=== PATIENT | female | born 1980 | race Caucasian/White ===

== ENCOUNTER 2017-12-18 19:11 | Outpatient (REF) | payer SELFPAY | END 2017-12-18 19:31 | LOC: LBN 19:11 | PROVIDERS: PCP Nurse Practitioner Family; Visit Provider Student in an Organized Health Care Education/Training Program | DX: R35.0 Frequency of micturition (principal) | CPT/HCPCS: 87077; 87086; 87186 ==

== ENCOUNTER 2018-06-24 01:16 | Outpatient (CLI) | payer MEDICAID, SELFPAY ==
--- NOTE | 2018-06-24 07:49 | DI.US_ITS ---
SYMPTOM/DIAGNOSIS: H/O FIBROIDS, MENORRHAGIA, NEW PAIN AT JANET ABD, NAUSEA PELVIC ULTRASOUND: A transabdominal and transvaginal examination was performed. The uterus measures 13.9 cm. in length, 9.5 cm. in height and 10.8 cm. in width with an endometrial stripe thickness of 3.5 mm. There is an intrauterine IUD noted in the endometrial cavity. There is a 12.7 by 8.9 by 10.8 cm. fundal fibroid. The ovaries are not visualized. There is no evidence of cul-de-sac fluid. IMPRESSION: An IUD appears to lie in the endometrial cavity. A fundal fibroid measures up to 12.7 by 8.9 by 10.8 cm. ABDOMEN ULTRASOUND: The aorta and vena cava are normal. The liver is top limits of normal in size. The patient is status post cholecystectomy. There is no evidence of biliary dilatation. The pancreas, spleen and kidneys are unremarkable. There is no evidence of abdominal free fluid. SUMMARY: Unremarkable abdominal ultrasound in a patient who is status post cholecystectomy.
== END 2018-06-24 01:36 ==
PROVIDERS: PCP Internal Medicine; Visit Provider Nurse Practitioner Adult Health
DX: D25.9 Leiomyoma of uterus, unspecified (principal); N92.0 Excessive and frequent menstruation with regular cycle; R10.815 Periumbilic abdominal tenderness; R11.0 Nausea; Z97.5 Presence of (intrauterine) contraceptive device; Z90.49 Acquired absence of other specified parts of digestive tract
CPT/HCPCS: 76700; 76830; 76856

== ENCOUNTER 2018-07-03 15:33 | Outpatient (REF) | payer MEDICAID, SELFPAY ==
[2018-07-03 15:48] LABS: Abs Immature Grans 0.03 k/cumm (0.0-0.09); Absolute Basophil Count 0.03 k/cumm (0.0-0.2); Absolute Eosinophil Count 0.08 k/cumm (0.0-0.7); Absolute Lymphocyte Count 3.63 k/cumm (1.2-3.4); Basophils % 0.2; Eosinophils % 0.6; HCT 41.6 % (36.0-46.0); HGB 13.8 g/dL (12.0-15.5); Immature Grans % 0.2; Lymphocytes % 28.6; Mean Corp. HGB Concentration 33.2 g/dL (32.0-36.0); Mean Corpuscular Hemoglobin 29.1 pg (27.0-33.0); Mean Corpuscular Volume 87.6 fL (80-95); Mean Platelet Volume 9.6 fL (8.0-11.0); Monocytes % 6.5; Neutrophils % 63.9; Platelet Count 388 x1000/uL (130-400); RBC 4.75 m/cumm (4.00-5.20); RBC Distribution Width 12.6 % (11.7-14.6); White Blood Cell Count 12.68 k/cumm (4.4-10.8)
[2018-07-03 15:49] LABS: Absolute Monocyte Count 0.82 k/cumm (0.11-0.7)
[2018-07-03 16:19] LABS: ALT 25 U/L (12-78); AST 14 U/L (15-37); Albumin 4.1 g/dL (3.4-5.0); Alkaline Phosphatase 107 U/L (46-116); Anion Gap 9.8 mmol/L (3-11); BUN 17 mg/dL (7-18); Bilirubin, Total 0.3 mg/dL (0.2-1.0); CO2 25.2 mmol/L (21.0-32.0); CREATININE 0.98 mg/dL (0.55-1.02); Calcium 9.6 mg/dL (8.5-10.1); Chloride 101 mmol/L (98-107); Glucose 85 mg/dL (70-100); Potassium 4.2 mmol/L (3.5-5.1); Sodium 136 mmol/L (136-145); Total Protein 8.2 g/dL (6.4-8.2)
[2018-07-03 16:39] LABS: ESR 43 MM/HR (0-20)
== END 2018-07-03 15:53 ==
LOC: LBN 15:33
PROVIDERS: PCP Internal Medicine; Visit Provider Nurse Practitioner Adult Health
DX: R50.9 Fever, unspecified (principal); R06.02 Shortness of breath; R14.0 Abdominal distension (gaseous); D21.9 Benign neoplasm of connective and other soft tissue, unspecified
CPT/HCPCS: 80053; 85652; 85025; 85379

== ENCOUNTER 2018-07-06 00:56 | Outpatient (CLI) | payer MEDICAID, SELFPAY ==
--- NOTE | 2018-07-06 09:51 | DI.MRI_ITS ---
SYMPTOM/DIAGNOSIS: UTERINE FIBROIDS, D25.9, LEIOMYOMA OF UTERUS PELVIS MRI: Comparison is made with pelvic ultrasound dated 06/24/18. T 1 and T 2 axial, coronal and sagittal sequences were performed. The exam is limited by patient motion. The cervix appears normal. The uterus is mostly replaced by a dominant fibroid measuring 9 cm. in diameter. Other smaller peripheral exophytic fibroids are seen. There is very little residual uterine parenchyma. An IUD is not visible on this exam. The visualized portions of the bones are unremarkable. IMPRESSION: 9 cm. dominant fibroid as well as multiple other smaller peripheral fibroids with very little residual uterine parenchyma.
[2018-07-06 12:28] LABS: D-Dimer 503 ng/mlFEU (<500)
== END 2018-07-06 01:16 ==
PROVIDERS: Nurse Practitioner Adult Health; PCP Internal Medicine; Visit Provider Obstetrics & Gynecology
DX: D25.9 Leiomyoma of uterus, unspecified (principal); D21.9 Benign neoplasm of connective and other soft tissue, unspecified; R06.02 Shortness of breath
CPT/HCPCS: 36415; 72195; 85379

== ENCOUNTER 2018-07-07 09:06 | Outpatient (CLI) | payer MEDICAID, SELFPAY ==
[2018-07-07] MEDS: Omnipaque 350 MG/ML 100 ML BTL IJ (09:21)
--- NOTE | 2018-07-07 09:21 | DI.CT_ITS ---
SYMPTOM/DIAGNOSIS: SOB, ELEVATED D DIMER, R06.02, R 79.89, ? PE PE CHEST CT: CT angiography was performed with multi slice acquisition and multi planar and 3D reconstruction. CT angiography of the chest was performed with intravenous infusion of cc's of Omnipaque 350. Images obtained through the upper abdomen are unremarkable. There is no evidence of pulmonary embolic disease. There is no evidence of thoracic aortic dissection or aneurysm. No mediastinal or hilar adenopathy seen. Tracheobronchial tree appears intact. No pleural effusion or pulmonary consolidation. CONCLUSION: Normal CTA chest.
== END 2018-07-07 09:26 ==
PROVIDERS: PCP Internal Medicine; Visit Provider Nurse Practitioner Adult Health
DX: R06.02 Shortness of breath (principal); R79.1 Abnormal coagulation profile
CPT/HCPCS: 71275; J3490

== ENCOUNTER 2018-07-08 12:33 | Outpatient (REF) | payer MEDICAID, SELFPAY ==
--- NOTE | 2018-07-08 11:20 | PAPFT_PTH ---
PATIENT: Savi De Jesus LOC: [facility] U#:[id number] AGE/SX: 38/F ROOM: RE07/08/[address]: Dusty Mart MD : 1980 BED: DIS: 07/08/2018 SPEC #: [id number] RECD: 07/08/18 12:54 STATUS: OLITomas RESherman #: [id number] CATERINA: 07/08/18 11:[address]: Dusty Mart DEPT: [facility] Cytology RECD BY: Emma Jurado ENTERED: 07/08/18 12:54 SP TYPE: PAPFT OTHR DR: Erika Howard MD Tissues: 1 - CX/ENDOCX FOR PAP SMEARS Procedures: PAP THIN PREP/UVM Screening HPV DNA PROBE Comments: [id number]
== END 2018-07-08 12:53 ==
LOC: LBN 12:33
PROVIDERS: PCP Internal Medicine; Visit Provider Obstetrics & Gynecology
DX: Z12.4 Encounter for screening for malignant neoplasm of cervix (principal); Z11.51 Encounter for screening for human papillomavirus (HPV)
CPT/HCPCS: 88142; 87624

== ENCOUNTER 2018-07-20 14:45 | Outpatient (CLI) | payer MEDICAID, SELFPAY ==
[2018-07-20 15:05] LABS: HCT 39.9 % (36.0-46.0); HGB 13.2 g/dL (12.0-15.5); Mean Corp. HGB Concentration 33.1 g/dL (32.0-36.0); Mean Corpuscular Hemoglobin 28.9 pg (27.0-33.0); Mean Corpuscular Volume 87.3 fL (80-95); Mean Platelet Volume 9.7 fL (8.0-11.0); Platelet Count 335 x1000/uL (130-400); RBC 4.57 m/cumm (4.00-5.20); RBC Distribution Width 12.6 % (11.7-14.6); White Blood Cell Count 10.09 k/cumm (4.4-10.8)
[2018-07-20 15:43] LABS: ESR 46 MM/HR (0-20)
[2018-07-22 11:35] LABS: IgA 301 mg/dL (85-499); Interpretation SEE COMMENTS; Tissue Transglutaminase IgA <1.2 U/mL (<4.0)
== END 2018-07-20 15:05 ==
PROVIDERS: PCP Internal Medicine; Visit Provider Nurse Practitioner Adult Health
DX: R14.0 Abdominal distension (gaseous) (principal); D72.829 Elevated white blood cell count, unspecified; Z83.79 Family history of other diseases of the digestive system; R70.0 Elevated erythrocyte sedimentation rate
CPT/HCPCS: 36415; 82784; 83516; 85027; 85652

== ENCOUNTER 2018-10-05 12:20 | Outpatient (CLI) | payer MEDICAID, SELFPAY ==
[2018-10-05 13:54] LABS: Anion Gap 11.5 mmol/L (3-11); BUN 13 mg/dL (7-18); CO2 21.5 mmol/L (21.0-32.0); CREATININE 0.89 mg/dL (0.55-1.02); Calcium 9.1 mg/dL (8.5-10.1); Chloride 105 mmol/L (98-107); Glucose 85 mg/dL (70-100); Magnesium 2.1 mg/dL (1.8-2.4); PHOSPHORUS 3.6 mg/dL (2.6-4.7); Potassium 4.3 mmol/L (3.5-5.1); Sodium 138 mmol/L (136-145)
[2018-10-05 15:09] LABS: ESR 53 MM/HR (0-20)
[2018-10-05 16:15] LABS: Vitamin D 25 Total 21.1 ng/ml (30-100)
[2018-10-05 16:16] LABS: Vitamin B12 573 pg/mL (193-986)
[2018-10-06 10:13] LABS: Parathyroid Hormone,Intact 34 pg/ml (19-88)
== END 2018-10-05 12:40 ==
PROVIDERS: PCP Nurse Practitioner Adult Health; Visit Provider Nurse Practitioner Adult Health
DX: F32.9 Major depressive disorder, single episode, unspecified (principal); R20.0 Anesthesia of skin; R20.2 Paresthesia of skin; R41.89 Other symptoms and signs involving cognitive functions and awareness; R42 Dizziness and giddiness; R53.81 Other malaise; R53.83 Other fatigue; R70.0 Elevated erythrocyte sedimentation rate; Z51.81 Encounter for therapeutic drug level monitoring
CPT/HCPCS: 36415; 80048; 82306; 85652; 82607; 83735; 83970; 84100

== ENCOUNTER 2019-03-21 19:48 | Emergency (ER) | payer MEDICAID, SELFPAY ==
[2019-03-21] VITALS (22 sets, daily range): BP systolic 112–150; BP diastolic 70–92; PULSE 71–93; RESP 11–26; TEMP 36.7; O2SAT 94–100
--- NOTE | 2019-03-21 20:04 | W.ED.GENAD ---
Discharge Plan Disposition Patient Disposition: HOME Discharge Details Chief Complaint: Palpitatns Clinical Impression: Chest pain, Heart palpitations Primary Care Provider: Kindra Romeo ED Provider: Isiah Mcdaniels Home Meds and New Rx's Prescriptions: No Action magnesium 200 mg tablet 500 mg PO DAILY PRNRF: 0 riboflavin (vitamin B2) 100 mg tablet See Rx Instructions PO DAILY RF: 0 acetaminophen [Tylenol Extra Strength] 500 mg tablet 500 mg PO ONCE PRNRF: 0 ferrous sulfate [Feosol] 325 mg (65 mg iron) tablet 325 mg PO BID RF: 0 cetirizine [Zyrtec] 10 mg tablet 10 mg PO DAILY PRNRF: 0 cholecalciferol (vitamin D3) 5,000 unit capsule 10,000 unit PO DAILY RF: 0 Discharge Instructions Instructions: Chest Pain (ED), Palpitations (ED) Additional Instructions: At this time there is no evidence of life-threatening process on your CAT scan, or with your work-up or EKG. We will set up a property assessment monitor for you, they will call you for this. If you notice any worsening of your symptoms, or any new symptoms such as vomiting, diarrhea, fever, chills, shortness of breath, chest pain, numbness, weakness, or fainting , please return immediately to the emergency department for reevaluation. Please follow up with your primary care provider as soon as possible for reassessment and reevaluation. As always, it was a pleasure participating in your medical care today. Referrals: Kindra Romeo, SPEECH LANGUAGE PATHOLOGY ASSISTANT [Primary Care Provider] - Medical Decision Making This is a 39-year-old female with a past medical history of previous uterine myomas and fibroids which was surgically removed this past December on the , chronic headaches, high cholesterol, mild obesity, who presents today for evaluation of chest pain, difficulty swallowing, back pain, palpitations. Symptoms have been present for the last 5 years, however for the last 1 year chest pain is been slightly worse, then she has had intermittent palpitations for the last 3 months. The difficulty swallowing is very mild, she states that she feels like there is something pressing from her back onto her throat, but this is intermittent and not constant. She had a fibroid surgery on January 07 she states that her symptoms notably improved however they seem to be returning now. She did take estrogen for control but stopped taking this a month ago. Denies PE risk factors such as recent long car rides, immobilization, recent surgery, prior history of DVT or PE, family history of PE or DVT, morbid obesity, current exogenous estrogen and smoking, hemoptysis, history of cancer. She denies any cough, hemoptysis. Shortness of breath does not seem to be necessarily worsened by activity. She does admit to mild chest pressure in conjunction with her symptoms. She denies fever, chills, numbness tingling or weakness. She denies history of cancer. Of note she did have a CT angiogram 9 months ago, this was negative for any acute process. Also of note the patient states that she is worried she may have an issue with her thymus in particular. However she denies any previous issue with her thymus in the past. Also of note the patient states that often times her right foot will start to mildly ache before her symptoms began. Physical exam shows no abnormalities whatsoever, EKG is unremarkable aside for mild Q3T3. Differential is broad, PE is on the differential but less likely. We will get a d-dimer, we will gently rehydrate, evaluate for cardiac abnormality. We will schedule her for an outpatient Holter monitor secondary to her palpitation symptoms. 10:30 At this time the laboratory work up has returned negative for any acute process, electrolytes are all within normal limits, renal function normal, liver function normal, troponin normal, proBNP within normal limits. Thyroid level normal, lipase normal. During the patient's time here she has shown no dysrhythmia or abnormality on telemetry. CTA of the chest shows no evidence of dissection, aneurysm, mass, tumor or abnormality per virtual radiology. I am uncertain as to the exact reason for the patient's symptomatology, there may be a component of muscle spasms, or other [id number] abnormality. We will schedule a Holter monitor for the patient for further outpatient cardiac dysrhythmia evaluation. Did recommend continued close follow-up with her primary care provider. If you notice any worsening of your symptoms, or any new symptoms such as vomiting, diarrhea, fever, chills, shortness of breath, chest pain, numbness, weakness, or fainting , please return immediately to the emergency department for reevaluation. Please follow up with your primary care provider as soon as possible for reassessment and reevaluation. As always, it was a pleasure participating in your medical care today. EKG 19: 55 Rate 100, ME 150, QTc 472, QRS 90, sinus rhythm, no significant ST elevation or depression, there is an inverted T wave in lead III, V1, questionable Q wave in lead III. No evidence of STEMI. No other abnormalities. Of note these findings are consistent with prior EKG from 2016 FINDINGS: Pulmonary arteries: No acute pulmonary embolus. Aorta: No aneurysm or dissection of the thoracic aorta. Lungs: Unremarkable. No consolidation. No masses. Pleural space: Unremarkable. No pneumothorax. No pleural effusion. Heart: Unremarkable. No cardiomegaly. No pericardial effusion. Gallbladder and bile ducts: Cholecystectomy. Lymph nodes: Unremarkable. No enlarged lymph nodes. Bones/joints: Unremarkable. No acute fracture. Soft tissues: Unremarkable. IMPRESSION: 1. No aneurysm or dissection of the thoracic aorta. 2. No acute pulmonary embolus. Thank you for allowing us to participate in the care of your patient. Dictated and Authenticated by: Villa Vazquez MD 03/21/2019 10:28 PM Eastern Time ([place] & [place]) Candidate vein examined with linear array probe - confirmed collapsibility, lack of pulsatility, and proper anatomic location. Using aseptic technique, IV catheter inserted with flash of blood noted, flow of venous blood confirmed. Flushes easily and without pain. No hematoma or complications noted. IV secured. Patient tolerated well. HPI General Date/Time Provider Initiated Documentation: 03/21/19 19:48. HPI Narrative: This is a 39-year-old female with a past medical history of previous uterine myomas and fibroids which was surgically removed this past December on the , chronic headaches, high cholesterol, mild obesity, who presents today for evaluation of chest pain, difficulty swallowing, back pain, palpitations. Symptoms have been present for the last 5 years, however for the last 1 year chest pain is been slightly worse, then she has had intermittent palpitations for the last 3 months. The difficulty swallowing is very mild, she states that she feels like there is something pressing from her back onto her throat, but this is intermittent and not constant. She had a fibroid surgery on January 07 she states that her symptoms notably improved however they seem to be returning now. She did take estrogen for control but stopped taking this a month ago. Denies PE risk factors such as recent long car rides, immobilization, recent surgery, prior history of DVT or PE, family history of PE or DVT, morbid obesity, current exogenous estrogen and smoking, hemoptysis, history of cancer. She denies any cough, hemoptysis. Shortness of breath does not seem to be necessarily worsened by activity. She does admit to mild chest pressure in conjunction with her symptoms. She denies fever, chills, numbness tingling or weakness. She denies history of cancer. Of note she did have a CT angiogram 9 months ago, this was negative for any acute process. Also of note the patient states that she is worried she may have an issue with her thymus in particular. However she denies any previous issue with her thymus in the past. Also of note the patient states that often times her right foot will start to mildly ache before her symptoms began. Related Data Home Medications Medication Instructions Recorded Confirmed cetirizine 10 mg tablet 10 mg PO DAILY PRN 09/21/18 03/21/19 cholecalciferol (vitamin D3) 5,000 10,000 unit PO DAILY cap 11/12/18 03/21/19 unit capsule riboflavin (vitamin B2) 100 mg See Rx Instructions PO DAILY 11/27/18 03/21/19 tablet ferrous sulfate 325 mg (65 mg 325 mg PO BID tab 02/05/19 03/21/19 iron) tablet acetaminophen 500 mg tablet 500 mg PO ONCE PRN tab 02/15/19 03/21/19 magnesium 200 mg tablet 500 mg PO DAILY PRN tab 02/15/19 03/21/19 Allergies Allergy/AdvReac Type Severity Reaction Status Date / Time basil Allergy Severe Verified 03/21/19 20:13 nickie hips Allergy Severe Tongue Verified 03/21/19 20:13 Swells gay Allergy Severe Verified 03/21/19 20:13 medroxyprogesterone acetate AdvReac Intermediate headache,shaky,blurred Verified 03/21/19 20:13 [From Provera] vision in r eye. eusebio AdvReac Mild vomitting Verified 03/21/19 20:13 sesame seed oil Allergy Intermediate tongue Uncoded 03/21/19 20:13 swelling Majoram Allergy Unknown Uncoded 03/21/19 20:13 Tyme Allergy Unknown Uncoded 03/21/19 20:13 General Stated Complaint: Palpitatns COTY: 2 Review of Systems All systems reviewed & are unremarkable except as noted in HPI and below PFSH Social History Smoking/Tobacco Use Status: Never Alcohol Intake: current Alcohol Intake frequency: holidays/special occasions only Drug use: Never Number of Children: 0 Communication Needs: Corrective Lenses Education Level: college Details: BA current occupation: Education What type of physical activity do you participate in: walking Frequency: daily Exam Narrative Exam Narrative: 1.Const: Well-nourished, Well-developed, appearing stated age 2.Eyes: PERRL, no conjunctival injection, and symmetrical lids. 3.ENT: Atraumatic external nose and ears. Moist MM. Neck: Symmetric, trachea midline, No thyromegaly. 4.CVS: +S1/S2, No murmurs or gallops. Peripheral pulses 2+ and equal in all extremities. Brisk capillary refill in all extremities. 5.RESP: Unlabored respiratory effort. Clear to auscultation bilaterally. No wheezes rales or rhonchi 6.GI: Soft, Nontender/Nondistended, No hepatosplenomegaly. No guarding or rebound. 7.MSK: Normocephalic/Atraumatic, Extremities w/o deformity or ttp No cyanosis or clubbing, Normal movement of all extremities. 8.Skin: Warm, Dry. No rashes or lesions. 9.Neuro: storeroom attendant II-XII grossly intact. Sensation grossly intact, no focal neurologic deficits. 10.Psych: (AAO) x3. Appropriate mood and affect Course Vital Signs Vital signs: Vital Signs Temperature 36.7 C 03/21/19 19:54 Pulse 90 03/21/19 19:54 Respiratory Rate 24 03/21/19 19:54 Blood Pressure 150/90 H 03/21/19 19:54 Pulse Oximetry 99 03/21/19 19:54 Temperature 36.7 C 03/21/19 19:54 Temperature Source Temporal Artery Scan 03/21/19 19:54 Pulse 90 03/21/19 19:54 Respiratory Rate 24 03/21/19 19:54 Respiratory Effort 03/21/19 19:57 Blood Pressure 150/90 H 03/21/19 19:54 Blood Pressure Position Supine 03/21/19 19:54 Pulse Oximetry 99 03/21/19 19:54 Oxygen Delivery Method Room Air 03/21/19 19:54 Oxygen Flow Rate 0 03/21/19 19:54
[2019-03-21 20:35] LABS: Abs Immature Grans 0.01 k/cumm (0.0-0.09); Absolute Basophil Count 0.05 k/cumm (0.0-0.2); Absolute Eosinophil Count 0.13 k/cumm (0.0-0.7); Absolute Lymphocyte Count 3.86 k/cumm (1.2-3.4); Absolute Monocyte Count 0.65 k/cumm (0.11-0.7); Absolute Neutrophil Count 5.83 k/cumm (1.2-6.7); Basophils % 0.5; Eosinophils % 1.2; HCT 38.2 % (36.0-46.0); HGB 12.5 g/dL (12.0-15.5); Immature Grans % 0.1; Lymphocytes % 36.7; Mean Corp. HGB Concentration 32.7 g/dL (32.0-36.0); Mean Corpuscular Hemoglobin 28.3 pg (27.0-33.0); Mean Corpuscular Volume 86.4 fL (80-95); Monocytes % 6.2; Neutrophils % 55.3; Platelet Count 404 x1000/uL (130-400); RBC 4.42 m/cumm (4.00-5.20); RBC Distribution Width 12.8 % (11.7-14.6); White Blood Cell Count 10.53 k/cumm (4.4-10.8)
[2019-03-21 20:57] LABS: ALT 25 U/L (14-59); AST 18 U/L (15-37); Albumin 3.6 g/dL (3.4-5.0); Alkaline Phosphatase 92 U/L (46-116); Anion Gap 10.5 mmol/L (3-11); BUN 12 mg/dL (7-18); Bilirubin, Total 0.1 mg/dL (0.2-1.0); CO2 26.5 mmol/L (21.0-32.0); CREATININE 1.03 mg/dL (0.55-1.02); Chloride 103 mmol/L (98-107); Estimated GFR 59.35 (mL/min/1.73m2); Glucose 94 mg/dL (74-106); Lipase 171 U/L (73-393); NT-proBNP 126 pg/mL (<300); Potassium 3.9 mmol/L (3.5-5.1); Sodium 140 mmol/L (136-145); TSH (W/Ref FT4) 3.54 uIU/mL (0.36-3.74); Total Protein 8.1 g/dL (6.4-8.2)
[2019-03-21 21:04] LABS: D-Dimer 461 ng/mlFEU (<500); Troponin I < 0.05 ng/Ml (<0.06)
[2019-03-21] MEDS: Normal Saline 500 ML IV (21:15)
--- NOTE | 2019-03-21 21:42 | DI.CT_ITS ---
EXAM: CT THORAX CTA CLINICAL HISTORY: CP, back pain, palpitations, eval for vascular abnormality TECHNIQUE: Post IV contrast COMPARISON: No exams were available for comparison FINDINGS: There is no evidence of pulmonary emboli or aortic dissection. The heart size is normal. The lungs are clear. There is no pneumothorax or evidence of thoracic spine or rib fracture. Patient is statu s post cholecystectomy. Visualized portions of the upper abdominal organs are unremarkable. IMPRESSION: Negative chest CT. No evidence of pulmonary emboli or other acute abnormalities.
[2019-03-21] MEDS: Omnipaque 350 MG/ML 100 ML BTL IJ (21:46)
--- NOTE | 2019-03-21 22:28 | DI.VRAD_ITS ---
PROCEDURE INFORMATION: Exam: CT Angiography Chest With Contrast Exam date and time: 03/21/2019 9:08 PM Age: 39 years old Clinical history: Sternal or substernal pain; Prior surgery; Surgery date: 6+ months; Surgery type: Gallbladder removed; Patient HX: Cp and tightness, back pain, pain radiating from sternum to back, palpitations eval for vascular abnormality TECHNIQUE: Imaging protocol: Computed tomographic angiography of the chest with intravenous contrast. 3D rendering: MIP reconstructed images were created and reviewed. Radiation optimization: All CT scans at this facility use at least one of these dose optimization techniques: automated exposure control; mA and/or kV adjustment per patient size (includes targeted exams where dose is matched to clinical indication); or iterative reconstruction. Contrast material: OMNIPAQUE 350; Contrast volume: 100 ml; Contrast route: IV RAC; COMPARISON: CT CHEST PE CTA 07/07/2018 4:58 PM FINDINGS: Pulmonary arteries: No acute pulmonary embolus. Aorta: No aneurysm or dissection of the thoracic aorta. Lungs: Unremarkable. No consolidation. No masses. Pleural space: Unremarkable. No pneumothorax. No pleural effusion. Heart: Unremarkable. No cardiomegaly. No pericardial effusion. Gallbladder and bile ducts: Cholecystectomy. Lymph nodes: Unremarkable. No enlarged lymph nodes. Bones/joints: Unremarkable. No acute fracture. Soft tissues: Unremarkable. IMPRESSION: 1. No aneurysm or dissection of the thoracic aorta. 2. No acute pulmonary embolus. Dictated and Authenticated by: Villa Vazquez MD. Ordering:GIDEON Joyce MD
== END 2019-03-21 23:01 | disposition home or self-care (01) ==
PROVIDERS: Emergency Provider Student in an Organized Health Care Education/Training Program; PCP Nurse Practitioner Adult Health
DX: R07.9 Chest pain, unspecified (principal); R00.2 Palpitations
CPT/HCPCS: 36415; 71275; 80053; 81025; 83690; 93005; 96360; 99285; 83880; 84443; 84484; 85025; 85379; 93010; 99284; J3490

== ENCOUNTER 2019-03-24 01:57 | Outpatient (CLI) | payer MEDICAID, SELFPAY | END 2019-03-24 02:17 | PROVIDERS: PCP Nurse Practitioner Adult Health; Visit Provider Nurse Practitioner Adult Health | DX: I48.92 Unspecified atrial flutter (principal); I49.1 Atrial premature depolarization; I49.3 Ventricular premature depolarization | CPT/HCPCS: 93225 ==

== ENCOUNTER 2019-03-30 09:02 | Outpatient (CLI) | payer MEDICAID, SELFPAY ==
--- NOTE | 2019-03-30 11:27 | W.HOLTRPT ---
Date of service: 03/30/19 Time of Service: 11:27 Holter Monitor Report Holter Monitor Note: There is a 48-hour Holter monitor ordered for the indication of atrial flutter. ?The patient was in normal sinus rhythm for the majority of the recording (heart rate 55-147 bpm) ?There were no episodes of supraventricular tachycardia and rare (less than 1%) premature atrial contractions. ?There were no episodes of ventricular tachycardia and rare (less than 1%) single ventricular ectopic beats. ?There were no episodes of atrial fibrillation or flutter. ?There were no episodes of high degree heart block or pauses greater than 3 seconds. ?Patient recorded events were associated with sinus rhythm, sinus tachycardia and single premature ventricular contractions.
== END 2019-03-30 09:22 ==
PROVIDERS: PCP Nurse Practitioner Adult Health; Visit Provider Nurse Practitioner Adult Health
DX: I48.92 Unspecified atrial flutter (principal); I49.1 Atrial premature depolarization; I49.3 Ventricular premature depolarization
CPT/HCPCS: 93226

== ENCOUNTER 2019-04-09 12:47 | Outpatient (CLI) | payer MEDICAID, SELFPAY ==
[2019-04-09 13:20] LABS: Abs Immature Grans 0.02 k/cumm (0.0-0.09); Absolute Basophil Count 0.05 k/cumm (0.0-0.2); Absolute Eosinophil Count 0.09 k/cumm (0.0-0.7); Absolute Lymphocyte Count 3.06 k/cumm (1.2-3.4); Absolute Monocyte Count 0.55 k/cumm (0.11-0.7); Absolute Neutrophil Count 7.65 k/cumm (1.2-6.7); Basophils % 0.4; Eosinophils % 0.8; HCT 39.5 % (36.0-46.0); HGB 12.7 g/dL (12.0-15.5); Immature Grans % 0.2; Lymphocytes % 26.8; Mean Corp. HGB Concentration 32.2 g/dL (32.0-36.0); Mean Corpuscular Hemoglobin 27.5 pg (27.0-33.0); Mean Corpuscular Volume 85.7 fL (80-95); Mean Platelet Volume 9.4 fL (8.0-11.0); Monocytes % 4.8; Platelet Count 368 x1000/uL (130-400); RBC 4.61 m/cumm (4.00-5.20); RBC Distribution Width 13.5 % (11.7-14.6); White Blood Cell Count 11.42 k/cumm (4.4-10.8)
[2019-04-09 14:08] LABS: ESR 43 mm/hr (0-20)
[2019-04-09 14:31] LABS: ALT 22 U/L (14-59); AST 13 U/L (15-37); Albumin 3.6 g/dL (3.4-5.0); Alkaline Phosphatase 88 U/L (46-116); Anion Gap 11.7 mmol/L (3-11); BUN 13 mg/dL (7-18); Bilirubin, Total 0.3 mg/dL (0.2-1.0); C-Reactive Protein 1.06 mg/dL (0.0-0.3); CO2 24.3 mmol/L (21.0-32.0); CREATININE 0.84 mg/dL (0.55-1.02); Calcium 8.9 mg/dL (8.5-10.1); Chloride 104 mmol/L (98-107); Glucose 122 mg/dL (74-106); Potassium 4.3 mmol/L (3.5-5.1); Sodium 140 mmol/L (136-145); Total Protein 7.5 g/dL (6.4-8.2)
[2019-04-11 10:11] LABS: Vitamin D 25 Total 31.9 ng/ml (30-100)
[2019-04-12 11:41] LABS: Lyme Ab w Rflx to Lyme Confirm Negative (Negative)
== END 2019-04-09 13:07 ==
PROVIDERS: PCP Nurse Practitioner Adult Health; Visit Provider Nurse Practitioner Adult Health
DX: E55.9 Vitamin D deficiency, unspecified (principal); R53.83 Other fatigue; R68.89 Other general symptoms and signs; R17 Unspecified jaundice; R79.89 Other specified abnormal findings of blood chemistry
CPT/HCPCS: 36415; 80053; 82306; 85652; 85025; 86140; 86618

== ENCOUNTER 2019-10-18 02:17 | Outpatient (CLI) | payer MEDICAID, SELFPAY ==
[2019-10-18 12:50] LABS: ALT 21 U/L (14-59); AST 15 U/L (15-37); Albumin 3.5 g/dL (3.4-5.0); Alkaline Phosphatase 89 U/L (46-116); Bilirubin, Total 0.4 mg/dL (0.2-1.0); Total Protein 7.3 g/dL (6.4-8.2)
== END 2019-10-18 02:37 ==
PROVIDERS: PCP Nurse Practitioner Adult Health; Visit Provider Nurse Practitioner Adult Health
DX: L98.9 Disorder of the skin and subcutaneous tissue, unspecified (principal); Z51.81 Encounter for therapeutic drug level monitoring
CPT/HCPCS: 36415; 80076

== ENCOUNTER 2019-11-15 18:33 | Outpatient (REF) | payer MEDICAID, SELFPAY ==
[2019-11-15 19:43] LABS: HCT 37.1 % (36.0-46.0); HGB 12.1 g/dL (11.2-15.7); MCH 28.5 pg (27.0-33.0); MCHC 32.6 % (32.0-36.0); MCV 87.5 fL (80-95); MPV 10.2 fL (8.0-11.0); Platelet Count 381 10^3/uL (130-400); RBC 4.24 10^6/uL (3.93-5.22); RDW 12.5 % (11.7-14.6); RDW-SD 40.1 fL; WBC 11.49 10^3/uL (4.4-10.8)
[2019-11-15 19:57] LABS: ALT 21 U/L (14-59); AST 13 U/L (15-37); Albumin 3.6 g/dL (3.4-5.0); Alkaline Phosphatase 92 U/L (46-116); Anion Gap 9.2 mmol/L (3-11); BUN 13 mg/dL (7-18); Bilirubin, Total 0.2 mg/dL (0.2-1.0); C-Reactive Protein 0.85 mg/dL (0.0-0.3); CO2 25.8 mmol/L (21.0-32.0); CREATININE 0.76 mg/dL (0.55-1.02); Calcium 9.2 mg/dL (8.5-10.1); Chloride 104 mmol/L (98-107); Glucose 100 mg/dL (74-106); Potassium 4.2 mmol/L (3.5-5.1); Sodium 139 mmol/L (136-145); Total Protein 7.5 g/dL (6.4-8.2)
[2019-11-15 20:23] LABS: ESR 49 mm/hr (0-20)
== END 2019-11-15 18:53 ==
LOC: NCHCN 18:33
PROVIDERS: PCP Nurse Practitioner Adult Health; Visit Provider Nurse Practitioner Adult Health
DX: M25.50 Pain in unspecified joint (principal); R52 Pain, unspecified; R60.9 Edema, unspecified; R68.89 Other general symptoms and signs
CPT/HCPCS: 80053; 85027; 85652; 86140

== ENCOUNTER 2019-11-29 00:51 | Outpatient (CLI) | payer MEDICAID, SELFPAY ==
--- NOTE | 2019-11-29 06:45 | DI.US_ITS ---
EXAM: US ABDOMEN CLINICAL HISTORY: assess RUQ/liver,RUQ PAIN,R10.11,ABD PAIN,R10.9 TECHNIQUE: Ultrasound abdomen performed using standard protocol. COMPARISON: No exams were available for comparison FINDINGS: LIVER: Mildly enlarged. Normal echogenicity. No focal liver lesions are seen.. GALLBLADDER: Status post cholecystectomy BILIARY SYSTEM: No intrahepatic or extrahepatic biliary ductal dilation. KIDNEYS: Kidneys are symmetric in size. No evidence of renal calculi. No evidence of hydronephrosis. No renal mass or cyst identified. PANCREAS: Normal where visualized. SPLEEN: Not enlarged. ABDOMINAL AORTA AND IVC: Visualized portions normal caliber. ASCITES: None seen. IMPRESSION: Status post cholecystectomy. No acute abnormality. DATA REPOSITORY:
== END 2019-11-29 01:11 ==
PROVIDERS: PCP Nurse Practitioner Adult Health; Visit Provider Nurse Practitioner Adult Health
DX: R10.11 Right upper quadrant pain (principal); Z90.49 Acquired absence of other specified parts of digestive tract
CPT/HCPCS: 76700

== ENCOUNTER 2020-03-14 03:39 | Outpatient (CLI) | payer MEDICAID, SELFPAY ==
[2020-03-14 12:55] LABS: TSH (W/Ref FT4) 2.07 uIU/mL (0.36-3.74)
[2020-03-14 13:15] LABS: Hemoglobin A1C 5.5 % (<5.7)
== END 2020-03-14 03:59 ==
PROVIDERS: PCP Nurse Practitioner Adult Health; Visit Provider Nurse Practitioner Adult Health
DX: R73.09 Other abnormal glucose (principal); E66.9 Obesity, unspecified
CPT/HCPCS: 36415; 83036; 84443

== ENCOUNTER 2020-03-14 11:48 | Outpatient (REF) | payer MEDICAID, SELFPAY ==
[2020-03-16 15:01] LABS: Helicobacter pylori Ag, Feces Negative (Negative)
== END 2020-03-14 12:08 ==
LOC: LBN 11:48
PROVIDERS: PCP Nurse Practitioner Adult Health; Visit Provider Nurse Practitioner Adult Health
DX: R10.9 Unspecified abdominal pain (principal); R19.8 Other specified symptoms and signs involving the digestive system and abdomen
CPT/HCPCS: 87338; 83630

== ENCOUNTER 2021-03-10 15:32 | Outpatient (REF) | payer MEDICAID, SELFPAY ==
[2021-03-10 14:52] LABS: Abs Immature Grans 0.05 10^3/uL (0.0-0.06); Absolute Basophil Count 0.06 10^3/uL (0.0-0.2); Absolute Eosinophil Count 0.08 10^3/uL (0.0-0.7); Absolute Monocyte Count 0.73 10^3/uL (0.1-0.8); Absolute Neutrophil Count 8.94 10^3/uL (1.2-6.7); Basophils % 0.5; Eosinophils % 0.6; HGB 12.5 g/dL (11.2-15.7); Immature Grans % 0.4; Lymphocytes % 23.4; MCH 28.2 pg (27.0-33.0); MCHC 32.1 % (32.0-36.0); MPV 9.5 fL (8.0-11.0); Monocytes % 5.7; Neutrophils % 69.4; Nucleated RBC 0 %; Platelet Count 370 10^3/uL (130-400); RBC 4.43 10^6/uL (3.93-5.22); WBC 12.88 10^3/uL (4.4-10.8)
[2021-03-10 14:53] LABS: Absolute Lymphocyte Count 3.01 10^3/uL (1.2-3.4)
[2021-03-10 15:05] LABS: ALT 27 U/L (14-59); AST 16 U/L (15-37); Albumin 3.8 g/dL (3.4-5.0); Alkaline Phosphatase 107 U/L (46-116); Amylase 50 U/L (25-115); Anion Gap 9.6 mmol/L (3-11); BUN 13 mg/dL (7-18); Bilirubin, Total 0.5 mg/dL (0.2-1.0); CO2 25.4 mmol/L (21.0-32.0); CREATININE 0.8 mg/dL (0.55-1.02); Calcium 9.2 mg/dL (8.5-10.1); Chloride 103 mmol/L (98-107); Glucose 89 mg/dL (74-106); Lipase 107 U/L (73-393); Potassium 4.3 mmol/L (3.5-5.1); Sodium 138 mmol/L (136-145); Total Protein 7.9 g/dL (6.4-8.2)
== END 2021-03-10 15:33 | disposition home or self-care (01) ==
LOC: LBN 15:32
PROVIDERS: PCP Nurse Practitioner Adult Health; Visit Provider Nurse Practitioner Family
DX: R10.84 Generalized abdominal pain (principal)
CPT/HCPCS: 80053; 83690; 82150; 85025

== ENCOUNTER 2021-04-16 00:55 | Outpatient (CLI) | payer MEDICAID, SELFPAY ==
--- NOTE | 2021-04-16 07:30 | DI.US_ITS ---
Exam(s) US PELVIS EXAM: US PELVIS CLINICAL HISTORY: 3.9cm R adnexal mass CT[place] [facility] [place] TECHNIQUE: Transabdominal and transvaginal imaging was performed using standard protocol. FINDINGS: KIDNEYS: Kidneys are symmetric in size. No evidence of renal calculi. No evidence of hydronephrosis. No renal mass or cyst identified. UTERUS: Anteverted. 12.6 x 4.6 x 6.0 cm. Endometrium: 6 millimeters Myometrium: 2 fibroids, 1 near the fundus measuring 1.4 cm greatest dimension. The larger anterior f ibroid measures 3.2 cm in greatest dimension. Cervix: Unremarkable. OVARIES: Right: Cyst or mass: None. Left: Cyst or mass: None. DOPPLER: Color: Symmetric and uniform flow to both ovaries. No hyperemia. CUL-DE-SAC: Free fluid: None. IMPRESSION: 1. Small uterine fibroids.. 2. Unremarkable bilateral ovaries. No right renal cyst or mass is seen. DATA REPOSITORY:
== END 2021-04-16 01:15 ==
PROVIDERS: PCP Nurse Practitioner Adult Health; Visit Provider Nurse Practitioner Adult Health
DX: N94.89 Other specified conditions associated with female genital organs and menstrual cycle (principal); D25.0 Submucous leiomyoma of uterus
CPT/HCPCS: 76856

== ENCOUNTER 2021-11-15 03:03 | Outpatient (CLI) | payer MEDICAID, SELFPAY ==
[2021-11-15 07:23] LABS: Abs Immature Grans 0.03 10^3/uL (0.0-0.06); Absolute Basophil Count 0.07 10^3/uL (0.0-0.2); Absolute Eosinophil Count 0.11 10^3/uL (0.0-0.7); Absolute Lymphocyte Count 3.82 10^3/uL (1.2-3.4); Absolute Neutrophil Count 7.64 10^3/uL (1.2-6.7); Basophils % 0.6; Eosinophils % 0.9; HCT 40.3 % (36.0-46.0); HGB 13.1 g/dL (11.2-15.7); Immature Grans % 0.2; Lymphocytes % 30.6; MCH 28.1 pg (27.0-33.0); MCHC 32.5 % (32.0-36.0); MCV 87 fL (80-95); MPV 9.1 fL (8.0-11.0); Monocytes % 6.4; Neutrophils % 61.3; Platelet Count 376 10^3/uL (130-400); RBC 4.66 10^6/uL (3.93-5.22); RDW 12.9 % (11.7-14.6); RDW-SD 40.5 fL; WBC 12.47 10^3/uL (4.4-10.8)
[2021-11-15 08:36] LABS: Anion Gap 11.8 mmol/L (3-11); BUN 11 mg/dL (7-18); CO2 23.2 mmol/L (21.0-32.0); CREATININE 0.8 mg/dL (0.55-1.02); Calcium 8.9 mg/dL (8.5-10.1); Calculated LDL 124 mg/dL (<100); Chloride 103 mmol/L (98-107); Cholesterol 206 mg/dL (<200); Glucose 98 mg/dL (74-106); HDL Cholesterol 37 mg/dL (40-60); Potassium 4.6 mmol/L (3.5-5.1); Sodium 138 mmol/L (136-145); Triglyceride 225 mg/dL (<150)
[2021-11-16 09:47] LABS: Hepatitis C Ab w Rflx HCV PCR Negative (Negative)
[2021-11-16 10:32] LABS: HIV-1/2 Ag & Ab Screen Negative (Negative)
== END 2021-11-15 03:04 | disposition home or self-care (01) ==
LOC: LBO 03:04
PROVIDERS: PCP Nurse Practitioner Adult Health; Referring Provider Nurse Practitioner Adult Health; Visit Provider Nurse Practitioner Adult Health
DX: Z80.6 Family history of leukemia (principal); Z11.4 Encounter for screening for human immunodeficiency virus [HIV]; Z11.59 Encounter for screening for other viral diseases; R79.89 Other specified abnormal findings of blood chemistry; R60.0 Localized edema; E66.8 Other obesity
CPT/HCPCS: 36415; 80048; 80061; 86803; 87389; 85025

== ENCOUNTER 2021-11-23 01:49 | Outpatient (CLI) | payer MEDICAID, SELFPAY ==
--- NOTE | 2021-11-23 13:00 | NS.NUTBLAN_ITS ---
Savi was referred for weight and allergy management. 5'7 268 lbs BMI: 43. Has gained 100 lbs in last 7 years Savi reports that she weighed 170 lbs when she moved back to [place] from [place] in 2016. Shortly, thereafter, she had sudden hearing loss and started to get water retention in her legs, trunk and would get lip swelling and ezema from many different foods such as eusebio, basil, oregano. She has not been on steriods other than in 2016 for 6 months. PMH: IBS, Fibroids Diet Record: lemon water for B, Wallace for L, Ribs and sauteed greens for D. Savi reports that her allergies and swelling are mostly controlled by anti histamine meds however, her weight continues to stay 100 lbs above her norm despite not eating in excess. She eats mostly home grown organic foods and avoids high sugar processed foods. She is active during work day but does not follow an exercise regime. Weight today is 9 lbs less than last week at PCP office. Svai attributes fluid retention as cause of weight fluctuations. She recently had the smart pill colonoscopy, results pending, has been tested for celiac- negative, colonoscopy and visit with mold filling operator pending. Session today focused on how to follow an elimination low FODMAP diet with focus on lower carb, high protein, non allergenic foods. Recommend not including: shellfish, gluten, lactose, nuts, soy and limiting corn products. Recommend a food journal with symptoms listed. Encourage walking 2 miles daily with goal of 10 miles per week. After GI work up complete, may benefit from an GLP-1ra such as Trucility to aid in weight loss. Follow up scheduled for 12/18/21 at 11 am.
== END 2021-11-23 01:50 | disposition home or self-care (01) ==
LOC: DS 01:49
PROVIDERS: PCP Nurse Practitioner Adult Health; Visit Provider Dietitian, Registered
DX: E66.8 Other obesity (principal); Z91.018 Allergy to other foods; Z68.41 Body mass index [BMI] 40.0-44.9, adult; Z71.3 Dietary counseling and surveillance; R60.0 Localized edema
CPT/HCPCS: 97802

== ENCOUNTER 2021-12-18 02:46 | Outpatient (CLI) | payer MEDICAID, SELFPAY ==
--- NOTE | 2021-12-18 11:00 | NS.NUTBLAN_ITS ---
Savi returns for weight and allergy management education. 5'7 262 lbs, down 6 lbs in 4 weeks BMI: 42. Diet Recall: Tumeric Smoothie for B, L: tuna and seaweed or corn tortilla with aged cheddar, Dinner: chicken, cucumbers, corn flour. Exercise: walks 2 miles daily. Savi reports feeling much better after starting the low FODMAP diet and avoiding gluten, dairy, shell fish, nuts and soy. . She notes less bloating and has more energy. She has not taken any anti histimine meds for last 7 days. She also reports increased flavour of foods. Session today focused on continuing meal plan for another 4 weeks and then we will start adding foods back in. She did note some stomach pain and constipation after eating cheerios (oats/gluten free) and chicken. Seems to tolerate mostly fish as protein and rice, corn and fruit as main sources of carbs. Tolerating aged cheddar without issue. Reviewed high mercury fish to avoid. She enjoys walking and has found that she is more energetic and joyful. Follow up scheduled for 01/22/22 at Noon
== END 2021-12-18 02:47 | disposition home or self-care (01) ==
LOC: DS 02:46
PROVIDERS: PCP Nurse Practitioner Adult Health; Visit Provider Dietitian, Registered
DX: E66.8 Other obesity (principal); Z91.018 Allergy to other foods; Z71.3 Dietary counseling and surveillance
CPT/HCPCS: 97803

== ENCOUNTER 2022-01-22 03:09 | Outpatient (CLI) | payer MEDICAID, SELFPAY ==
--- NOTE | 2022-01-22 12:00 | NS.NUTBLAN_ITS ---
Savi returns for weight and food allergy management. 5'7 252 lbs down 16 lbs in last 8 weeks Exercise: walks 2 miles daily - 14 miles per week Diet Recall: gluten free banana bread with egg for B, Lunch: salad with 3 oz cheese, D: fish, rice and veggies Symptoms: reports swelling after eating lamp and chicken prepared at function. Overall, feeling much better Session today focused on how to start to reintroduce foods to test for tolerance. Continue low FODMAP diet and start adding 1 food per week and to test twice for reaction. Follow up planned in 6 weeks: 02/26/22 at Noon.
== END 2022-01-22 03:10 | disposition home or self-care (01) ==
LOC: DS 03:09
PROVIDERS: PCP Nurse Practitioner Adult Health; Visit Provider Dietitian, Registered
DX: E66.8 Other obesity (principal); Z91.018 Allergy to other foods; Z71.3 Dietary counseling and surveillance
CPT/HCPCS: 97803

== ENCOUNTER 2022-02-11 09:50 | Outpatient (REF) | payer MEDICAID, SELFPAY ==
--- NOTE | 2022-02-11 09:10 | SKI_PTH ---
PATIENT: Savi De Jesus LOC: [facility] U#:[id number] AGE/SX: 41/F ROOM: RE02/11/[address]: Mj Farrar MD : 1980 BED: DIS: 02/11/2022 SPEC #: [id number] RECD: 02/11/22 12:41 STATUS: LEANDER RESherman #: [id number] CATERINA: 02/11/22 09:[address]: Mj Farrar DEPT: Surgical Specimen RECD BY: Emma Jurado ENTERED: 02/11/22 12:43 SP TYPE: GIANCARLO HERNANDEZ DR: Kindra Romeo APRN Tissues: 1 - SKIN BIOPSY(SHAVE/PUNCH) 2 - SKIN BIOPSY(SHAVE/PUNCH) 3 - SKIN BIOPSY(SHAVE/PUNCH) 4 - SKIN BIOPSY(SHAVE/PUNCH) 5 - SKIN BIOPSY(SHAVE/PUNCH) 6 - SKIN BIOPSY(SHAVE/PUNCH) Procedures: SKIN LEVEL 4 Comments: [id number]
== END 2022-02-11 09:51 | disposition home or self-care (01) ==
LOC: LBN 09:50
PROVIDERS: PCP Nurse Practitioner Adult Health; Visit Provider Surgery
DX: D22.5 Melanocytic nevi of trunk (principal); D22.61 Melanocytic nevi of right upper limb, including shoulder; D22.62 Melanocytic nevi of left upper limb, including shoulder
CPT/HCPCS: 88305

== ENCOUNTER 2022-02-26 04:17 | Outpatient (CLI) | payer MEDICAID, SELFPAY ==
--- NOTE | 2022-02-26 13:00 | NS.NUTBLAN_ITS ---
Savi returns for weight management and food allergy education. Wt: 242 lbs, Down 25 lbs in last 90 days. Reports minimal swelling or hives in last month. Has started to reintroduce items. Able to tolerate potatoes. Diet Recall: Follow Low FODMAP diet with < 100 g carbs daily. Has not beeing walking lately due to having covid. To start up soon when feels better. Savi is doing very well with meal plan, weight loss and identifying foods that cause symptoms. In coming weeks will reintroduce chicken peas, apples, vinegar and soy. Goal is for continued weight loss and identfying foods that cause inflammation. follow up planned for 03/26/22 at 1 pm.
== END 2022-02-26 04:18 | disposition home or self-care (01) ==
LOC: DS 04:17
PROVIDERS: PCP Nurse Practitioner Adult Health; Visit Provider Dietitian, Registered
DX: E66.8 Other obesity (principal); Z71.3 Dietary counseling and surveillance; Z91.018 Allergy to other foods
CPT/HCPCS: 97803

== ENCOUNTER 2022-04-16 04:28 | Outpatient (CLI) | payer MEDICAID, SELFPAY ==
--- NOTE | 2022-04-16 10:00 | NS.NUTBLAN_ITS ---
Savi returns for weight and food allergy management. 5'8 239 lbs BMI: 36. Down 28 lbs in last 5 months. Goal Wt: 180 lbs Continues to follow modified lowFODMAP diet with good results. She reports decreased swelling and bloating. Diet Recall: B: gluten free pancakes with banana, L: carrot soup with chicken breast, D: chicken with large salad. Snacks: popcorn Savi has been more active in last month and averaging about 1-2 hours per day- skating, walking, shoveling. She reports swelling with introduction of okra and with her hormonal changes during the month. She has reintroduced potato, beets, turnips, chicken and soft cheese such as brie without issue. In next 8 weeks, she will introduce onions, peas, apples and soy. Nuts and seeds will be retintroduced once weight is around 220 lbs. Reviewed ways to reduce glycemic index of popcorn by eating it with a hunk of cheese or to melt cheese on it. Goal for coming weeks is 45 min cardio, 5 days per week and a weight loss goal of 2 lbs per month or 16 lbs in next 8 weeks (223 lbs). Follow up 06/25 at 10 am.
== END 2022-04-16 04:29 | disposition home or self-care (01) ==
LOC: DS 04:28
PROVIDERS: PCP Nurse Practitioner Adult Health; Visit Provider Dietitian, Registered
DX: E66.9 Obesity, unspecified (principal)
CPT/HCPCS: 97803

== ENCOUNTER 2022-06-19 03:01 | Outpatient (CLI) | payer MEDICAID, SELFPAY ==
[2022-06-19 12:27] LABS: ESR 20 mm/hr (0-20)
[2022-06-19 14:12] LABS: Folate 3.7 ng/mL (8.6-20.0); Vitamin B12 423 pg/mL (193-986)
[2022-06-19 14:28] LABS: C-Reactive Protein 0.11 mg/dL (0.0-0.3)
[2022-06-19 16:04] LABS: ALT 19 U/L (14-59); AST 16 U/L (15-37); Albumin 3.4 g/dL (3.4-5.0); Alkaline Phosphatase 77 U/L (46-116); Anion Gap 10.6 mmol/L (3-11); BUN 7 mg/dL (7-18); Bilirubin, Total 0.3 mg/dL (0.2-1.0); CO2 24.4 mmol/L (21.0-32.0); CREATININE 0.9 mg/dL (0.55-1.02); Calcium 8.8 mg/dL (8.5-10.1); Chloride 106 mmol/L (98-107); Estimated GFR 81.35 (mL/min/1.73m2); Glucose 92 mg/dL (74-106); Potassium 4.2 mmol/L (3.5-5.1); Sodium 141 mmol/L (136-145); Total Protein 7.3 g/dL (6.4-8.2)
== END 2022-06-19 03:02 | disposition home or self-care (01) ==
LOC: LOS 03:01
PROVIDERS: PCP Nurse Practitioner Adult Health; Visit Provider Physician Assistant
DX: H93.13 Tinnitus, bilateral (principal); G44.52 New daily persistent headache (NDPH)
CPT/HCPCS: 36415; 80053; 85652; 82607; 82746; 86140

== ENCOUNTER 2022-07-13 16:24 | Outpatient (REF) | payer MEDICAID, SELFPAY | END 2022-07-13 16:25 | disposition home or self-care (01) | LOC: LBN 16:24 | PROVIDERS: PCP Nurse Practitioner Adult Health; Visit Provider Nurse Practitioner Family | DX: J02.9 Acute pharyngitis, unspecified (principal) | CPT/HCPCS: 87070 ==

== ENCOUNTER 2022-08-30 01:28 | Outpatient (CLI) | payer MEDICAID, SELFPAY ==
--- NOTE | 2022-08-30 07:45 | DI.US_ITS ---
Exam(s) US PELVIS TRANSVAGINAL EXAM: US PELVIS TRANSVAGINAL CLINICAL HISTORY: uterine myoma, d25.9,reassess fibroids. TECHNIQUE: Transabdominal and transvaginal pelvic ultrasound was performed using standard protocol. COMPARISON: US US PELVIS from 04/16/2021 FINDINGS: UTERUS: Position: Anteverted. Size: 11.7 long by 5.5 AP by 6.1 transverse cm Endometrium: 1.3 cm. Normal for patient's menstrual status. Myometrium: There are 3 discrete uterine masses present. The largest is in the anterior body and mishel sures 7.0 x 6.2 x 7.6 cm. There is a sub mucosal fibroid which measures 2.5 x 2.7 x 2.8 cm. It is l ocated in the anterior body. There is a fibroid in the lower uterine segment measuring 2.1 x 1.6 x 1 .8 cm. Cervix: Unremarkable. OVARIES: Right: 3.1 x 1.6 x 3.2 cm Cyst or mass: No suspicious cystic or solid masses. Left: 4.2 x 3.1 x 2.8 cm Cyst or mass: No suspicious cystic or solid masses. DOPPLER: Color: Symmetric and uniform flow to both ovaries. CUL-DE-SAC: Free fluid: None. Other: None. IMPRESSION: 1. Enlarged fibroid uterus. The largest discrete fibroid measures 7.0 x 6.2 x 7.6 cm. 2. Unremarkable bilateral ovaries. DATA REPOSITORY:
== END 2022-08-30 01:48 ==
LOC: DI 01:28
PROVIDERS: PCP Nurse Practitioner Adult Health; Visit Provider Nurse Practitioner Adult Health
DX: D25.9 Leiomyoma of uterus, unspecified (principal)
CPT/HCPCS: 76830; 76856

== ENCOUNTER 2022-09-12 14:18 | Outpatient (REF) | payer MEDICAID, SELFPAY ==
--- NOTE | 2022-09-12 13:45 | PAPFT_PTH ---
PATIENT: Savi De Jesus LOC: [facility]#:[id number] AGE/SX: 42/F ROOM: RE09/12/[address]: Kindra Romeo APRN : 1980 BED: DIS: 09/12/2022 SPEC #: [id number] RECD: 09/12/22 17:42 STATUS: LEANDER RESherman #: [id number] CATERINA: 09/12/22 13:[address]: Kindra Romeo DEPT: [facility] Cytology RECD BY: Emma Jurado Tissues: 1 - CX/ENDOCX FOR PAP SMEARS Procedures: PAP THIN PREP/UVM Screening HPV DNA PROBE Comments: [id number]
[2022-09-13 13:27] LABS: Chlamydia Result Negative (Negative); GC Result Negative (Negative)
== END 2022-09-12 14:19 | disposition home or self-care (01) ==
LOC: LBN 14:18
PROVIDERS: PCP Nurse Practitioner Adult Health; Referring Provider Nurse Practitioner Adult Health; Visit Provider Nurse Practitioner Adult Health
DX: Z11.3 Encounter for screening for infections with a predominantly sexual mode of transmission (principal); Z12.4 Encounter for screening for malignant neoplasm of cervix; R87.612 Low grade squamous intraepithelial lesion on cytologic smear of cervix (LGSIL); Z11.51 Encounter for screening for human papillomavirus (HPV); R87.810 Cervical high risk human papillomavirus (HPV) DNA test positive
CPT/HCPCS: 87491; 87591; 88142; 87480; 87510; 87624; 87660

== ENCOUNTER 2022-09-13 02:22 | Outpatient (CLI) | payer MEDICAID, SELFPAY | END 2022-09-13 02:23 | disposition home or self-care (01) | PROVIDERS: PCP Nurse Practitioner Adult Health; Visit Provider Nurse Practitioner Adult Health | DX: E53.8 Deficiency of other specified B group vitamins (principal) | CPT/HCPCS: 36415; 82746 ==

== ENCOUNTER 2022-09-17 01:53 | Outpatient (CLI) | payer MEDICAID, SELFPAY ==
--- NOTE | 2022-09-17 07:45 | DI.US_ITS ---
Exam(s) US SOFT TISSUE EXTREMITY EXAM: US SOFT TISSUE EXTREMITY CLINICAL HISTORY: characterize lumps on leg,r22.9. TECHNIQUE: Ultrasound was performed using standard protocol. COMPARISON: US US SOFT TISSUE EXTREMITY from 09/17/2022 FINDINGS: Sonographic assessment utilizing grayscale and color Doppler imaging was performed and targeted to th e area of clinical concern. There is a 0.7 x 0.4 x 0.7 cm round hyperechoic nodule in the subcutaneous tissues of the left upper extremity. It is most suggestive of a lipoma. No suspicious cystic or solid masses are seen sonogra phically. IMPRESSION: DATA REPOSITORY:
--- NOTE | 2022-09-17 07:45 | DI.MAMMO_ITS ---
Exam(s) MAMMO SCREENING EXAM: MAMMO SCREENING CLINICAL HISTORY: screening,z12.39 TECHNIQUE: Bilateral full field digital CC and MLO mammographic images were obtained with 3D tomosyn thesis and utilizing computer aided detection (CAD). COMPARISON: None. FINDINGS: Masses/Architectural Distortion: None seen. Microcalcifications: No suspicious pleomorphic-type are seen. Skin Thickening/Nipple Retraction: None. IMPRESSION: 1. No significant interval change with no specific features of malignancy noted. 2. Unless there is more urgent need, screening mammography is recommended, as per [employer] guidelines. BI-RADS Category 1 - Negative Breast Density - Category A - Almost entirely fatty Breast density category C or D implies that the patient has dense breast tissue. Dense breast tissue is very common and is not abnormal but dense breast tissue can make it harder to find cancer on a ma mmogram. Also, dense breast tissue may increase their breast cancer risk. This information about the result of the mammogram report was provided to the patient to raise their awareness. Use this report when you speak with the patient about their risks for breast cancer, which includes their family hist ory. At that time, you may recommend for more screening tests (Ultrasound or MRI) as they might be us eful based on their risk. A negative radiographic report should not delay biopsy if a dominant or clinically suspicious mass is present. Up to ten percent of cancers are not identified on mammography. A negative report may reinforce clinical impression. Adenosis and dense breasts may obscure an underlying neoplasm. False positive reports average 6 to 10%. Patient will receive a letter notifying them of these results.
--- NOTE | 2022-09-17 07:45 | DI.US_ITS ---
Exam(s) US SOFT TISSUE EXTREMITY EXAM: US SOFT TISSUE EXTREMITY CLINICAL HISTORY: characterize lumps on leg,r22.9. TECHNIQUE: Ultrasound was performed using standard protocol. COMPARISON: No exams were available for comparison FINDINGS: Sonographic assessment utilizing grayscale and color Doppler imaging was performed and targeted to th e area of clinical concern. There is a 7.2 x 5.4 x 4.4 mm hyperechoic subcutaneous mass suspicious for lipoma. No suspicious cys tic or solid masses are seen sonographically. IMPRESSION: DATA REPOSITORY:
== END 2022-09-17 02:13 ==
PROVIDERS: PCP Nurse Practitioner Adult Health; Visit Provider Nurse Practitioner Adult Health
DX: Z12.31 Encounter for screening mammogram for malignant neoplasm of breast (principal); R22.32 Localized swelling, mass and lump, left upper limb
CPT/HCPCS: 76881; 77063; 77067

== ENCOUNTER 2023-02-18 01:17 | Outpatient (CLI) | payer MEDICAID, SELFPAY ==
[2023-02-18 10:28] LABS: Abs Immature Grans 0.02 10^3/uL (0.0-0.06); Absolute Basophil Count 0.04 10^3/uL (0.0-0.2); Absolute Eosinophil Count 0.05 10^3/uL (0.0-0.7); Absolute Lymphocyte Count 2.57 10^3/uL (1.2-3.4); Absolute Monocyte Count 0.57 10^3/uL (0.1-0.8); Absolute Neutrophil Count 5.92 10^3/uL (1.2-6.7); Basophils % 0.4; Eosinophils % 0.5; HCT 41.1 % (36.0-46.0); HGB 13.2 g/dL (11.2-15.7); Immature Grans % 0.2; MCH 28.1 pg (27.0-33.0); MCHC 32.1 % (32.0-36.0); MCV 88 fL (80-95); MPV 9.2 fL (8.0-11.0); Monocytes % 6.2; Neutrophils % 64.7; Platelet Count 332 10^3/uL (130-400); RBC 4.69 10^6/uL (3.93-5.22); RDW 12.7 % (11.7-14.6); RDW-SD 40.4 fL; WBC 9.17 10^3/uL (4.4-10.8)
[2023-02-18 11:04] LABS: FREE T4 1.09 ng/dL (0.76-1.46)
[2023-02-18 11:13] LABS: Iron 61 ug/dL (50-170); Total Iron Binding Capacity 343 ug/dL (250-450); Transferrin Sat 18 % (15-50)
[2023-02-18 11:29] LABS: ALT 18 U/L (14-59); AST 11 U/L (15-37); Albumin 3.6 g/dL (3.4-5.0); Alkaline Phosphatase 77 U/L (46-116); Anion Gap 8.6 mmol/L (3-11); BUN 16 mg/dL (7-18); Bilirubin, Total 0.5 mg/dL (0.2-1.0); CO2 25.4 mmol/L (21.0-32.0); CREATININE 0.9 mg/dL (0.55-1.02); Calcium 9.2 mg/dL (8.5-10.1); Chloride 103 mmol/L (98-107); Estimated GFR 81.35 (mL/min/1.73m2); Ferritin 53 ng/mL (8-252); Glucose 93 mg/dL (74-106); Potassium 4.1 mmol/L (3.5-5.1); Sodium 137 mmol/L (136-145); TSH (W/Ref FT4) 1.77 uIU/mL (0.36-3.74); Total Protein 8.1 g/dL (6.4-8.2); Vitamin B12 399 pg/mL (193-986)
[2023-02-18 11:37] LABS: Folate > 20.0 ng/mL (8.6-20.0)
== END 2023-02-18 01:18 | disposition home or self-care (01) ==
PROVIDERS: Absent Provider Nurse Practitioner Adult Health; PCP Nurse Practitioner Adult Health; Referring Provider Nurse Practitioner Adult Health; Visit Provider Nurse Practitioner Adult Health
DX: E53.8 Deficiency of other specified B group vitamins (principal); N92.0 Excessive and frequent menstruation with regular cycle
CPT/HCPCS: 36415; 80053; 82607; 82728; 82746; 83540; 83550; 84439; 84443; 85025

== ENCOUNTER 2024-03-25 12:21 | Outpatient (REF) | payer BC, SELFPAY ==
--- NOTE | 2024-03-25 11:30 | PAPFT_PTH ---
PATIENT: Savi De Jesus LOC: [facility] U#:[id number] AGE/SX: 44/F ROOM: RE03/25/[address]: Kindra Romeo APRN : 1980 BED: DIS: 03/25/2024 SPEC #: [id number] RECD: 03/25/24 16:40 STATUS: LEANDER REQ #: [id number] CATERINA: 03/25/24 11:[address]: Kindra Romeo DEPT: [facility] Cytology RECD BY: Emma Jurado Tissues: 1 - CX/ENDOCX FOR PAP SMEARS Procedures: PAP THIN PREP/UVM Screening HPV DNA PROBE Comments: [id number] (HPV 16 & 18/45)
[2024-03-25 15:42] LABS: Folate 4.8 ng/mL (8.6-20.0)
== END 2024-03-25 12:22 | disposition home or self-care (01) ==
LOC: LBN 12:21
PROVIDERS: PCP Nurse Practitioner Adult Health; Visit Provider Nurse Practitioner Adult Health
DX: E53.8 Deficiency of other specified B group vitamins (principal); Z12.4 Encounter for screening for malignant neoplasm of cervix; Z11.51 Encounter for screening for human papillomavirus (HPV)
CPT/HCPCS: 88142; 82746; 87624

== ENCOUNTER 2024-03-29 01:17 | Outpatient (CLI) | payer BC, SELFPAY ==
--- NOTE | 2024-03-29 12:05 | DI.MAMMO_ITS ---
Exam(s) MAMMO SCREENING EXAM: MAMMO SCREENING CLINICAL HISTORY: screening,z12.39 TECHNIQUE: Bilateral full field digital CC and MLO mammographic images were obtained with 3D tomosyn thesis and utilizing computer aided detection (CAD). COMPARISON: Available for comparison. FINDINGS: Masses/Architectural Distortion: There is a new asymmetric density in the outer left breast on the cr aniocaudad view 7 cm from the nipple. No areas of architectural distortion are seen in the right andrew st. Microcalcifications: No suspicious pleomorphic-type are seen. Skin Thickening/Nipple Retraction: None. IMPRESSION: 1. New asymmetric density in the outer left breast on the craniocaudad view 7 cm from the nipple. 2. This area should be further evaluated with a spot compression view. Ultrasound may be indicated at that time. BI-RADS Category 0 - Incomplete: Need additional imaging evaluation Breast Density - Category A - Almost entirely fatty Breast density category C or D implies that the patient has dense breast tissue. Dense breast tissue is very common and is not abnormal but dense breast tissue can make it harder to find cancer on a ma mmogram. Also, dense breast tissue may increase their breast cancer risk. This information about the result of the mammogram report was provided to the patient to raise their awareness. Use this report when you speak with the patient about their risks for breast cancer, which includes their family hist ory. At that time, you may recommend for more screening tests (Ultrasound or MRI) as they might be us eful based on their risk. A negative radiographic report should not delay biopsy if a dominant or clinically suspicious mass is present. Up to ten percent of cancers are not identified on mammography. A negative report may reinforce clinical impression. Adenosis and dense breasts may obscure an underlying neoplasm. False positive reports average 6 to 10%. Patient will receive a letter notifying them of these results.
== END 2024-03-29 01:37 ==
LOC: DI 01:17
PROVIDERS: PCP Nurse Practitioner Adult Health; Visit Provider Nurse Practitioner Adult Health
DX: Z12.31 Encounter for screening mammogram for malignant neoplasm of breast (principal); R92.313 Mammographic fatty tissue density, bilateral breasts
CPT/HCPCS: 77063; 77067

== ENCOUNTER 2024-04-06 03:00 | Outpatient (CLI) | payer BC, SELFPAY ==
--- NOTE | 2024-04-06 14:16 | DI.MAMMO_ITS ---
Exam(s) MAMMO SCREEN CALL BACK UNI EXAM: MAMMO SCREEN CALL BACK UNI CLINICAL HISTORY: New asymmetric density in outer lt breast 7 cm from nipple TECHNIQUE: Spot compression views with tomographic imaging were performed. COMPARISON: 2022 and recent exam 29 March 2024 FINDINGS: No suspicious masses or suspicious microcalcifications are seen. No persistent abnormality is seen on the additional views performed. The findings are consistent wit h overlying fibroglandular tissue. There has been no significant change from prior exams. IMPRESSION: BI-RADS Category 1, Negative Yearly screening mammography is recommended. Breast Density - Category A - Almost entirely fatty
== END 2024-04-06 03:20 ==
LOC: DI 03:00
PROVIDERS: PCP Nurse Practitioner Adult Health; Visit Provider Nurse Practitioner Adult Health
DX: Z12.31 Encounter for screening mammogram for malignant neoplasm of breast (principal); R92.313 Mammographic fatty tissue density, bilateral breasts
CPT/HCPCS: 77063; 77067

== ENCOUNTER 2024-05-05 15:10 | Outpatient (REF) | payer BC, SELFPAY ==
--- NOTE | 2024-05-05 15:00 | ENDO_PTH ---
PATIENT: Savi De Jesus LOC: [facility] U#:[id number] AGE/SX: 44/F ROOM: RE05/05/[address]: Mariya Oconnell DO : 1980 BED: DIS: 05/05/2024 SPEC #: [id number] RECD: 05/05/24 17:08 STATUS: LEANDER RE #: [id number] CATERINA: 05/05/24 15:[address]: Mariya Oconnell DEPT: Surgical Specimen RECD BY: Emma Jurado ENTERED: 05/05/24 17:08 SP TYPE: Endo OTHR DR: Kindra Romeo APRN Tissues: 1 - ENDOCERVICAL BX/BETTINA Procedures: GROSS AND MICRO LEVEL 4 Comments: [id number]
[2024-05-07 11:55] LABS: Chlamydia Result Negative (Negative); GC Result Negative (Negative)
== END 2024-05-05 15:11 | disposition home or self-care (01) ==
LOC: LBN 15:10
PROVIDERS: PCP Nurse Practitioner Adult Health; Visit Provider Obstetrics & Gynecology
DX: Z11.3 Encounter for screening for infections with a predominantly sexual mode of transmission (principal); D26.0 Other benign neoplasm of cervix uteri; R87.610 Atypical squamous cells of undetermined significance on cytologic smear of cervix (ASC-US); R87.810 Cervical high risk human papillomavirus (HPV) DNA test positive; D25.9 Leiomyoma of uterus, unspecified
CPT/HCPCS: 87491; 87591; 88305

== ENCOUNTER 2024-05-05 15:54 | Outpatient (CLI) | payer BC, SELFPAY ==
[2024-05-05 23:44] LABS: HIV-1/2 Ag & Ab Screen Negative (Negative)
[2024-05-05 23:47] LABS: Hepatitis A Antibody IgM Negative (Negative); Hepatitis B Core Antibody Negative (Negative); Hepatitis B surface Ag Negative (Negative); Hepatitis C Ab w Rflx HCV PCR Negative (Negative)
[2024-05-06 11:02] LABS: Syphilis Serology (RPR) Negative (Negative)
== END 2024-05-05 15:55 | disposition home or self-care (01) ==
LOC: LBO 15:56
PROVIDERS: PCP Nurse Practitioner Adult Health; Visit Provider Obstetrics & Gynecology
DX: Z11.3 Encounter for screening for infections with a predominantly sexual mode of transmission (principal); D26.0 Other benign neoplasm of cervix uteri; R87.610 Atypical squamous cells of undetermined significance on cytologic smear of cervix (ASC-US); R87.810 Cervical high risk human papillomavirus (HPV) DNA test positive; D25.9 Leiomyoma of uterus, unspecified
CPT/HCPCS: 36415; 86704; 86709; 86803; 87340; 87389; 86592

== ENCOUNTER 2024-07-20 15:31 | Emergency (ER) | payer BC, SELFPAY ==
[2024-07-20] VITALS (17 sets, daily range): BP systolic 139–152; BP diastolic 79–84; PULSE 60–73; RESP 16–20; TEMP 36.5–37.1; O2SAT 96–98
--- NOTE | 2024-07-20 15:30 | RT.EKG_ITS ---
APPROVED REPORT Exam: Resting ECG Reason for Exam: Tachycardia Patient Location: E HR:62 bpm ECG Measurements Heart Rate 62 AXIS MT 145 P 48 QRSd 82 QRS 13 QT 423 T 32 QTc 431 Conclusion Sinus rhythm...normal P axis, V-rate 60- 99 No Occlusion ND
[2024-07-20 17:37] LABS: Abs Immature Grans 0.03 10^3/uL (0.0-0.06); Absolute Basophil Count 0.08 10^3/uL (0.0-0.2); Absolute Eosinophil Count 0.06 10^3/uL (0.0-0.7); Absolute Monocyte Count 0.54 10^3/uL (0.1-0.8); Absolute Neutrophil Count 6.38 10^3/uL (1.2-6.7); Basophils % 0.8 %; Eosinophils % 0.6 %; HCT 43.6 % (36.0-46.0); HGB 13.5 g/dL (11.2-15.7); Immature Grans % 0.3 %; Lymphocytes % 31.8 %; MCV 87 fL (80-95); MPV 9.6 fL (8.0-11.0); Monocytes % 5.2 %; Neutrophils % 61.3 %; Platelet Count 375 10^3/uL (130-400); RDW 13.3 % (11.7-14.6); WBC 10.39 10^3/uL (4.4-10.8)
--- NOTE | 2024-07-20 17:59 | W.ED.GENAD ---
Discharge Plan Disposition Patient Disposition: Home Condition: Stable Discharge Details Clinical Impression: Palpitations Primary Care Provider: Kindra Romeo ED Provider: Emma Swain Home Meds and New Rx's Prescriptions: Continued acetaminophen [Tylenol Extra Strength] 500 mg tablet 500 mg PO ONCE PRN mometasone [Nasonex] 50 mcg/actuation spray,non-aerosol 2 spray PEDRO DAILY PRN Rx Instructions: [facility] Allergy 08/2019; administer into each nostril eucalyptus oil 100 % oil 100 % MC DAILY PRN Patient Comments: essential oil blend (On Guard) - containing orange, clove, cinnamon, eucalyptus, and gay. Rx Instructions: essential oil blend (On Guard) - containing orange, clove, cinnamon, eucalyptus, and gay. folic acid 50mg/10mL 2 mg subcut DAILY Qty: 40 11RF Rx Instructions: Folate deficiency; please dispense QS 3 months (DME) BD SafetyGlide Needle 25 gauge x 5/8 needle See Rx Instructions .Route Qty: 28 11RF Rx Instructions: To use for daily subcutaneous folic acid supplementation (or similar substitution acceptable) (DME) syringe (disposable) 1 mL syringe See Rx Instructions .Route Qty: 28 11RF Rx Instructions: As directed. To use for daily subcutaneous folic acid supplementation DX: E53.8. cetirizine 10 mg tablet 10 mg PO QHS PRN (Reason: allergy symptoms) Patient Comments: [facility] Allergy Note 09/18/22 Rx Instructions: 10 mg at bedtime, use as needed. triamcinolone acetonide [Nasacort] 55 mcg aerosol,spray 2 spray intranasal DAILY Patient Comments: [facility] Allergy Note 09/18/22 Rx Instructions: 2 Sprays per nostril. Discharge Instructions Instructions: Palpitations (DC) Additional Instructions: your appointment with neurology at [facility] was in December, I recommend following up with them the provider you saw was Allie Yanez Talk to your doctor about a Holter monitor or Zio patch to further evaluate your heart rhythm your tests today are reassuring Try to stay away from caffeine is much as possible Please return earlier should develop chest pain or any persistent or worsening symptoms Referrals: Kindra Romeo, HISTOLOGY TEACHER [Primary Care Provider] - 1 day HPI General Date/Time Provider Initiated Documentation: 07/20/24 15:37. HPI Narrative: 44-year-old female with intermittent tachycardia and palpitations since April, worse in the past several days. Heart rate reaches 140s at rest. No chest pain, fever, chills, upper respiratory or systemic signs of illness, calf pain, swelling, recent surgeries, long drives, or history of coagulopathy. Wonders if folic acid level is low. Related Data Home Medications ?Medication ?Instructions ?Recorded ?Confirmed acetaminophen 500 mg tablet 500 mg PO ONCE PRN 02/15/19 07/20/24 (Tylenol Extra Strength) eucalyptus oil 100 % 100 % miscellaneous DAILY PRN 06/18/19 07/20/24 mometasone 50 mcg/actuation nasal 2 spray intranasal DAILY PRN 03/23/21 07/20/24 spray (Nasonex) cetirizine 10 mg tablet 10 mg PO QHS PRN allergy symptoms 10/01/22 07/20/24 triamcinolone acetonide 55 mcg 2 spray intranasal DAILY 10/01/22 07/20/24 nasal spray aerosol (Nasacort) folic acid 50mg/10mL 2 mg subcut DAILY #40 mL 03/25/24 07/20/24 safety needles 25 gauge x 5/8 (BD #28 ea 03/25/24 07/20/24 SafetyGlide Needle) syringe (disposable) 1 mL #28 ea 03/25/24 07/20/24 Previous Rx's ?Medication ?Instructions ?Recorded folic acid 50mg/10mL 2 mg subcut DAILY #40 mL 03/25/24 safety needles 25 gauge x 5/8 (BD #28 ea 03/25/24 SafetyGlide Needle) syringe (disposable) 1 mL #28 ea 03/25/24 Allergies Allergy/AdvReac Type Severity Reaction Status Date / Time basil Allergy Severe tongue Verified 07/20/24 15:41 swelling, hard to swallow nickie hips Allergy Severe Tongue Verified 07/20/24 15:41 Swells gay Allergy Severe tongue Verified 07/20/24 15:41 swelling, rash sesame oil Allergy Severe Swelling/Ed Verified 07/20/24 15:41 danette soybean Allergy Severe Swelling/Ed Verified 07/20/24 15:41 danette thyme Allergy Intermediate tongue Verified 07/20/24 15:41 swelling, rash grass pollen Allergy Mild Other (See Verified 07/20/24 15:41 Comment) animal dander Allergy Unknown Itching Verified 07/20/24 15:41 stauffer Allergy Unknown Swelling/Ed Verified 07/20/24 15:41 danette Beef Containing Products Allergy Unknown Swelling/Ed Verified 07/20/24 15:41 danette oak Allergy Unknown Other (See Verified 07/20/24 15:41 Comment) medroxyprogesterone acetate AdvReac Intermediate headache,shaky,blurred Verified 07/20/24 15:41 (From Provera) vision in r eye. eusebio AdvReac Mild vomitting Verified 07/20/24 15:41 General Stated Complaint: GenMedical COTY: 3 Exam Narrative Exam Narrative: General Appearance: Alert, oriented, no acute distress. Vital signs: Afebrile and nontoxic. HEENT: Within normal limits. Respiratory: Lungs clear to auscultation. Cardiovascular: Regular cardiac rate and rhythm. Extremities: No peripheral edema. Neurological: Neurovascularly intact in bilateral lower extremities. Skin: Warm and dry, no rash. Course Vital Signs Vital signs: Vital Signs Temperature 36.5 C 07/20/24 15:32 Pulse 70 07/20/24 15:32 Respiratory Rate 20 07/20/24 15:32 Blood Pressure 152/84 H 07/20/24 15:32 Pulse Oximetry 96 07/20/24 15:32 Temperature 36.5 C 07/20/24 15:38 Pulse 70 07/20/24 15:38 Respiratory Rate 16 07/20/24 15:57 Respiratory Effort Normal 07/20/24 15:57 Respiratory Depth Normal 07/20/24 15:57 Respiratory Pattern Normal 07/20/24 15:57 Blood Pressure 152/84 H 07/20/24 15:38 Blood Pressure Position Sitting 07/20/24 15:38 Pulse Oximetry 96 07/20/24 15:38 Oxygen Delivery Method Room Air 07/20/24 15:38 Oxygen Flow Rate 0 07/20/24 15:38 Lab/Test Results Lab/Test Results: Laboratory Tests Range/Units 07/20/24 16:44 WBC (4.4-10.8) 10^3/uL 10.39 RBC (3.93-5.22) 10^6/uL 5.00 Hgb (11.2-15.7) g/dL 13.5 Hct (36.0-46.0) % 43.6 MCV (80-95) fL 87 MCH (27.0-33.0) pg 27.0 MCHC (32.0-36.0) % 31.0 L RDW (11.7-14.6) % 13.3 Plt Count (130-400) 10^3/uL 375 MPV (8.0-11.0) fL 9.6 Immature Gran % % 0.3 Neutrophils % % 61.3 Lymphocytes % % 31.8 Monocytes % % 5.2 Eosinophils % % 0.6 Basophils % % 0.8 Nucleated RBC % (0.0-0.3) % 0.0 Absolute Neutrophils (1.2-6.7) 10^3/uL 6.38 Absolute Lymphocytes (1.2-3.4) 10^3/uL 3.30 Absolute Monocytes (0.1-0.8) 10^3/uL 0.54 Absolute Eosinophils (0.0-0.7) 10^3/uL 0.06 Absolute Basophils (0.0-0.2) 10^3/uL 0.08 POC- Test(urine) Negative Medical Decision Making test negative. EKG: normal sinus rhythm, normal rate, no acute abnormality. Mag, TSH, CBC CMP within normal limits Initial Assessment: 44-year-old female with intermittent tachycardia/palpitations since April, worsening in the past several days. Heart rate reaches 140s at rest. No chest pain, fever, chills, or systemic signs of illness. Negative test. ED Course: - EKG: normal sinus rhythm and rate, no acute abnormalities, read by attending. - Negative pulmonary embolism rule-out criteria. - Withhold D-dimer test due to negative pulmonary embolism criteria. - No troponin levels due to absence of chest pain. - Pending tests: CBC, CMP, TSH. Recommend outpatient Holter or Zio patch Final Assessment: Intermittent tachycardia/palpitations with heart rate reaching 140s at rest. EKG shows normal sinus rhythm and rate with no acute abnormalities. Negative pulmonary embolism rule-out criteria. Pending CBC, CMP, TSH. Clinical Impression: - Tachycardia/palpitations MDM Components Evaluation: - Number of Differential Diagnoses or Management Options: Tachycardia/palpitations - Amount and Complexity of Data Reviewed: EKG, CBC, CMP, TSH, test - Risk of Complication and Morbidity or Mortality: Low risk due to absence of chest pain, negative pulmonary embolism criteria, and normal EKG. Quality:SDOH Health Related Social Needs: No Data to Display PFSH All Active Problems (Updated 07/20/24 @ 18:42 by MARY Roblero) Palpitations (Acute) Screen for STD (sexually transmitted disease) (Acute) ASCUS with positive high risk HPV cervical (Acute ~03/2024) Prior low-grade Colpo 05/05/2024, no biopsies, endocervical curettage performed benign- Recommend Pap 04/2025 Uterine myoma (Acute 09/09/14) Surgically removed [facility] 12/2018 Impaired concentration (Acute) Memory difficulty (Acute ~01/2023) MoCA 03/24/2023 Pap smear abnormality of cervix/human papillomavirus (HPV) positive (Acute ~09/2022) LGSIL on Pap smear of cervix (Acute ~09/2022) Multiple lipomas (Acute ~09/2022) US confirmed Folate deficiency (Acute ~06/2022) Lumps on the skin (Acute) Environmental and seasonal allergies (Acute) [facility] Allergy Note 06/13/22 Chronic rhinitis (Acute) [facility] Allergy Note 06/13/22 Other adverse food reactions, not elsewhere classified, subsequent encounter (Acute) [facility] Allergy note 05/10/22 Functional dyspepsia (Chronic ~06/2021) [facility] GI IBS (irritable bowel syndrome) (Chronic ~06/2021) [facility] GI Dependent edema (Acute) Family hx-leukemia (Chronic ~2019) annual CBCs Obesity (Chronic ~2018) Hyperlipidemia, unspecified (Chronic 2013) Medical History Neoplasm of unspecified behavior of bone, soft tissue, and skin [facility] DERM 07/09/23 Nevus Hypertrophy of nasal turbinates Deviated nasal septum Adnexal mass [facility] CT Enterography 08/08/2020-->pelvic U/S ordered 03/23/21 Nasal obstruction Hoarseness of voice Acute strain of neck muscle Combination of stress, strain and over-use. Mid back pain Bra line--suspect central obesity & breast size contributory GA (granuloma annulare) 12/13/19 [facility] Derm- benign; RX Clobetasol Elevated C-reactive protein Mild--obesity? Elevated erythrocyte sedimentation rate Mild--Obesity? Anosmia 09/10/19 [facility] Allergy - prescribed 5 days of prednisone Multiple somatic complaints Migraine headache without aura Migraine headache with aura Chronic headache Abnormal auditory perception of left ear Hearing exam essentially normal 2018 Herpes simplex virus (HSV) infection (08/23/14) Caregiver burden Parental Tinnitus (09/12/14) Improved with B2 & Mg++ supplementation as if part of migraine symptoms Mild depression (01/23/15) Mild anxiety (06/19/15) Did not tolerate Buspar (HAs) Citalopram (2014) Menorrhagia with regular cycle (06/07/15) Associated with fibroids Encounter for insertion of mirena IUD (06/07/15) Removed 12/2018 [facility], started OCP HLD (hyperlipidemia) Anxiety Surgical History H/O local excision of skin lesion (02/11/22) left shoulder, mid back, lower back, with 3 shave bx as well, benign [facility] Leiomyomata Myomectomy (01/05/19) Laparotomy (11/05/11) large uterine leiomyoma metrorrhagia Cholecystectomy Family History Mother Leukemia CLL Anxiety Father Alcohol abuse Essential hypertension Personal history of malignant neoplasm Lung CA dx'ed age 69 (+nicotine); brain mets Sister Personal history of malignant neoplasm Brother Asthma Maternal Uncle Diabetes Paternal Aunt Diabetes Paternal Grandmother Diabetes Social History Smoking/Tobacco Use Status: Never Smoking risk assessment performed?: Yes Alcohol Intake: current Alcohol Intake frequency: holidays/special occasions only Drug use: Never Substance use type: does not use Adopted: No Caregiver/Support person: No Foster care: No Household members: none Housing: house Number of Children: 0 Communication Needs: Corrective Lenses Education Level: college Details: BA current occupation: Education Pets and animals: Yes Pets and animals: horse(s) Sexually active: No Do you think of yourself as: straight/heterosexual Current gender identity: female What is your relationship status?: never How often do you talk on the phone with friends or family?: three or more times per week How often do you get together with friends or relatives?: once per week How often do you attend restorationist or rastafari services?: 4 or more times per year Do you belong to any clubs or organized social groups?: no Panel score (0-1 are the most socially isolated patients): 2 What type of physical activity do you participate in: walking Duration: 45-60 minutes/day Frequency: 5-6 times per week Lesia/Advent: Confucianist Seatbelt use: always Helmet use: Yes Drive intox or ride w/intox motorcycle delivery driver: No Working smoke detector in home: Yes Carbon monox detector in home: Yes Do you feel safe at home: Yes Female Reproductive History Menstrual Age of Menarche: 11 Duration of menses: 3-5 days History History 0 Para Hx # Term Pregnancies Multiple births Hx # Pregnancies Ectopic pregnancies AB induced Hx Number of Living Children AB spontaneous PAWSS Have you Been Recently Intoxicated or Drunk Within the Last 30 days?: No Have you Ever Experienced Previous Episodes of Alcohol Withdrawal?: No Have you ever Experienced Withdrawal Seizures?: No Have you ever Experienced Delirium Tremens(DT)s?: No Have you ever undergone Alcohol Rehabilitation Treatment (i.e, inpt ot outpatient treatment programs)?: No Have you ever Experienced Blackouts?: No Have you ever Combined Alcohol with other Downers within the last 90 days?: No Have you ever Combined Alcohol with any other Substance of Abuse during the last 90 days?: No Positive Blood Alcohol level on Presentation? [PCS.BAL]: No Evidence of Increased Autonomic Activity (i.e. HR>120, tremor, sweating, agitation, nausea)?: No Result: 0
[2024-07-20 18:07] LABS: ALT 19 U/L (14-59); AST 12 U/L (15-37); Albumin 3.9 g/dL (3.4-5.0); Alkaline Phosphatase 93 U/L (46-116); Anion Gap 10.1 mmol/L (3-11); BUN 8 mg/dL (7-18); Bilirubin, Total 0.4 mg/dL (0.2-1.0); CO2 28.9 mmol/L (21.0-32.0); CREATININE 0.9 mg/dL (0.55-1.02); Calcium 9.6 mg/dL (8.5-10.1); Chloride 103 mmol/L (98-107); Estimated GFR 80.34 (mL/min/1.73m2); Glucose 90 mg/dL (74-106); Potassium 4.2 mmol/L (3.5-5.1); Sodium 142 mmol/L (136-145); TSH (W/Ref FT4) 1.77 uIU/mL (0.36-3.74); Total Protein 8.5 g/dL (6.4-8.2)
[2024-07-20 18:13] LABS: Folate 8.7 ng/mL (8.6-20.0)
== END 2024-07-20 19:09 | disposition home or self-care (01) ==
PROVIDERS: Emergency Provider Physician Assistant; PCP Nurse Practitioner Adult Health
DX: R00.2 Palpitations (principal); R06.02 Shortness of breath; E78.5 Hyperlipidemia, unspecified
CPT/HCPCS: 80053; 81025; 93005; 99283; 82746; 83735; 84443; 85025; 93010

== ENCOUNTER 2024-08-03 08:08 | Outpatient (CLI) | payer BC, SELFPAY | END 2024-08-03 08:09 | disposition home or self-care (01) | PROVIDERS: PCP Nurse Practitioner Adult Health; Visit Provider Nurse Practitioner Adult Health | DX: R00.2 Palpitations (principal); R00.0 Tachycardia, unspecified | CPT/HCPCS: 93246 ==

== ENCOUNTER 2024-08-26 07:18 | Outpatient (CLI) | payer BC, SELFPAY ==
--- NOTE | 2024-08-26 08:39 | W.CARDEVENT ---
Date of service: 08/26/24 Time of Service: 08:39 Cardiac Event Recorder Referring Provider:: Kindra Romeo Indications:: Palpitations Cardiac Event Note: This is a cardiac event monitor. Patient was monitored for 12 days and 7 hours Rhythm throughout was sinus with an average heart rate of 70. Minimum was 49, maximum 135 There were very rare isolated atrial and ventricular ectopic beats. There was no atrial fibrillation, no SVT, no pauses greater than 3 seconds, no high-grade AV block. Symptoms were reported which correlated to sinus rhythm
== END 2024-08-26 07:19 | disposition home or self-care (01) ==
LOC: CARDOPNVT 07:18
PROVIDERS: PCP Nurse Practitioner Adult Health; Visit Provider Internal Medicine Cardiovascular Disease
DX: R00.2 Palpitations (principal)
CPT/HCPCS: 93248

== ENCOUNTER 2025-03-28 12:39 | Outpatient (REF) | payer BC, SELFPAY ==
--- NOTE | 2025-03-28 11:45 | PAPFT_PTH ---
PATIENT: Savi De Jesus LOC: [facility] U#:[id number] AGE/SX: 45/F ROOM: RE03/28/[address]: Kindra Romeo APRN : 1980 BED: DIS: 03/28/2025 SPEC #: [id number] RECD: 03/29/25 12:34 STATUS: LEANDER RESherman #: [id number] CATERINA: 03/28/25 11:[address]: Kindra Romeo DEPT: [facility] Cytology RECD BY: Emma Jurado Tissues: 1 - CX/ENDOCX FOR PAP SMEARS Procedures: PAP THIN PREP/[facility] Screening HPV DNA PROBE Comments: [id number] (HPV 16 & 18/45)
== END 2025-03-28 12:40 | disposition home or self-care (01) ==
LOC: LBN 12:39
PROVIDERS: PCP Nurse Practitioner Adult Health; Visit Provider Nurse Practitioner Adult Health
DX: Z12.4 Encounter for screening for malignant neoplasm of cervix (principal)
CPT/HCPCS: 88142; 87624

== ENCOUNTER → 2025-03-30 00:22 | Outpatient (CLI) | payer BC, SELFPAY ==
--- NOTE | 2025-03-30 06:45 | DI.MAMMO_ITS ---
Exam(s) MAMMO SCREENING EXAM: MAMMO SCREENING CLINICAL HISTORY: screening,Z12.39 TECHNIQUE: Mammograms were interpreted according to the usual protocol including computer analysis with CAD system, tomosynthesis and C-view imaging. COMPARISON: 2022 and 2023 FINDINGS: The breasts are composed of mainly fatty density , Breast Density category A. No suspicious masses or suspicious microcalcifications are seen. No skin thickening or abnormal axillary lymph nodes are seen. There has been no significant change from prior exams. IMPRESSION: BI-RADS Category 1, Negative mammogram Yearly screening mammography is recommended. Breast Density- Category A - The breast are almost entirely fatty. Breast density Category C or D implies that the patient has dense breast tissue. Dense breast tissue can make it harder to find cancer on a mammogram. Dense breast tissue is also associated with an increased risk of breast cancer. This information about the result of the mammogram report was provided to the patient to raise their awareness. Use this report when you speak with the patient about their risks for breast cancer, which includes their family history. At that time, you may recommend additional screening tests (Ultrasound or MRI) as these tests may add significant information. A negative radiographic report should not delay biopsy if a dominant or clinically suspicious mass is present. Up to ten percent of cancers are not identified on mammography. A negative report may reinforce clinical impression. Adenosis and dense breasts may obscure an underlying neoplasm. False positive reports average 6 to 10%. Patient will receive a letter notifying them of these results.
== END ==
LOC: DI 00:22
PROVIDERS: PCP Nurse Practitioner Adult Health; Visit Provider Nurse Practitioner Adult Health
DX: Z12.31 Encounter for screening mammogram for malignant neoplasm of breast (principal); R92.313 Mammographic fatty tissue density, bilateral breasts
CPT/HCPCS: 77063; 77067